=== PATIENT | male | born 1980 | race Caucasian/White ===

== ENCOUNTER 2019-12-15 13:01 | Emergency (ER) | payer OTHER, MEDICAID, SELFPAY ==
[2019-12-15] VITALS (9 sets, daily range): BP systolic 120–131; BP diastolic 69–82; PULSE 56–78; RESP 12–26; TEMP 36.4; O2SAT 100; BMI 25.3
--- NOTE | 2019-12-15 | DI.CT.S_ITS ---
PROCEDURE: CT HEAD/BRAIN WO CON INDICATIONS: TRAUMA TECHNIQUE: Noncontrast 4.5 mm thick angled axial sections acquired from the foramen magnum to the vertex, with coronal and sagittal reformats. For radiation dose reduction, the following was used: automated exposure control, adjustment of mA and/or kV according to patient size. COMPARISON: [facility], CT, CT CERVICAL SPINE WO CON, 12/15/2019, 12:52. FINDINGS: Image quality: Diagnostic, with note made of motion artifact. CSF spaces: Basal cisterns are patent. No extra-axial fluid collections. Ventricles are normal in size and shape. Brain: No midline shift. No intracranial masses or hemorrhage. Alvarado-white matter interface is normal. Skull and face: Soft tissue hematoma is seen involving the forehead, left worse than right. No underlying calvarial fracture is seen. Calvarium and visualized facial bones are intact, without suspicious lesions. Sinuses: There is a mucous retention cyst seen within the inferior anterior right maxillary sinus. Visualized sinuses and mastoids are otherwise clear. IMPRESSION: No acute intracranial hemorrhage is seen. No acute intracranial process is seen. Soft tissue hematoma is seen involving the forehead, left greater than right, yet without an associated regional bony fracture identified. Dictated by: Constantino Hernandez M.D. on 12/15/2019 at 12:21 Approved by: Constantino Hernandez M.D. on 12/15/2019 at 12:23
--- NOTE | 2019-12-15 | DI.CT.S_ITS ---
PROCEDURE: CT CHEST ABD PEL W CON INDICATIONS: Construction trauma. TECHNIQUE: After the administration of intravenous contrast, 5 mm thick sections acquired from the lung apices to the symphysis. 2.5 mm thick coronal and sagittal reformats were acquired. Additional 7 mm thick coronal maximum intensity projection (MIP) reformats acquired through the lungs. Optional 10-minute delayed imaging may be performed from the kidneys to the bladder. For radiation dose reduction, the following was used: automated exposure control, adjustment of mA and/or kV according to patient size. COMPARISON: None. FINDINGS: Image quality: Excellent. CHEST: Lungs: No pulmonary contusions or lacerations. No acute airspace opacities. Mild bilateral posterior dependent atelectasis is seen. No pneumothorax or hemothorax. Central and peripheral airways appear patent and normal in caliber. Mediastinum: No mediastinal hematomas. Heart size is normal. No pericardial effusion. Thoracic aorta and pulmonary arteries demonstrate normal size and enhancement. No mediastinal or hilar adenopathy. Esophagus is normal in caliber. No hiatal hernia. Chest wall: No rib fractures. No subcutaneous emphysema. No axillary or supraclavicular adenopathy. Thyroid gland is unremarkable. ABDOMEN: Solid organs: Liver is normal in size and enhancement, without lacerations. Gallbladder is within normal limits. Biliary system is non-dilated. Pancreas enhances normally, without transection. Spleen is normal in size and enhancement, without lacerations. No adrenal hematomas. Both kidneys enhance normally, without hydronephrosis or lacerations. Peritoneum and bowel: No free fluid or air. Unenhanced bowel loops demonstrate normal wall thickness and caliber. Nodes and vessels: No retroperitoneal or mesenteric adenopathy. Aorta and inferior vena cava are normal in size and enhancement. Miscellaneous: No ventral hernias. PELVIS: Genitourinary: Bladder wall thickness is normal. Miscellaneous: No inguinal hernias or adenopathy. Bones: Pelvic ring and hip joints appear intact. Acute appearing anterior wedge compression deformity involving T8, T10, T11 and T12 vertebral bodies are seen with up to 27 percent loss of T12 vertebral body height anteriorly. No significant retropulsion is seen at these levels. IMPRESSION: 1. Acute appearing compression fractures involving superior anterior aspect of T8, T10, T11 and T12 vertebral bodies with up to 27 percent loss of T12 vertebral body height anteriorly. No acute compression fracture is seen in lumbar spine. 2. No acute fracture is noted in bilateral ribs or bony pelvis. 3. No acute solid organ injury is seen in chest, abdomen or pelvis. Dictated by: Walter Ewing M.D. on 12/15/2019 at 12:34 Approved by: Walter Ewing M.D. on 12/15/2019 at 12:44
--- NOTE | 2019-12-15 | DI.CT.S_ITS ---
PROCEDURE: CT CERVICAL SPINE WO CON INDICATIONS: TRAUMA TECHNIQUE: Noncontrast 3 mm thick sections acquired from the skull base to the T4 level. Sagittal and coronal reformats were then constructed. For radiation dose reduction, the following was used: automated exposure control, adjustment of mA and/or kV according to patient size. COMPARISON: [facility], CT, CT HEAD/BRAIN WO CON, 12/15/2019, 12:52. FINDINGS: Image quality: There is motion artifact seen, particularly affecting the thoracic portion of this study. Bones: No fractures or dislocations. Visualized superior ribs are intact. Soft tissues: Prevertebral soft tissues are normal in thickness. No paravertebral hematomas. No apical pneumothoraces. IMPRESSION: No displaced cervical spine fracture is seen. Dictated by: Constantino Hrenandez M.D. on 12/15/2019 at 12:23 Approved by: Constantino Hernandez M.D. on 12/15/2019 at 12:24
--- NOTE | 2019-12-15 13:18 | ED_ITS ---
HPI - Trauma General Chief Complaint: Trauma Stated Complaint: Trauma Time Seen by Provider: 12/15/19 14:06 Source: patient and EMS Mode of arrival: EMS History of Present Illness HPI narrative: Patient brought in by EMS. Patient involved in construction site injury. 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 No no no loss of consciousness. Complains of lower back pain. No limb pain or injury. No numbness tingling or weakness. No incontinence. No saddle paresthesia. Patient is diabetic. Ate lunch, chicken strips, 1 hour prior to injury. Has abrasion to the bridge of the nose. Patie nt arrives boarded and collared. Patient immediately went to CT scan for trauma imaging. EMS gave 20 mg of morphine. Patient is awake alert oriented x4. Clear speech. No hypoxia. No hypotension. ATLS protocol followed. Please see nurse's notes for primary survey MD complaint: injury and pain Review of Systems Review of Systems Narrative: GENERAL: Denies chills, fatigue, malaise, fever, sweats. HEENT: Denies sinus pain, ear pain, sore throat, difficulty swallowing, dizziness. RESPIRATORY: Denies dyspnea, cough, wheezing, hemoptysis, sputum. CARDIOVASCULAR: Denies chest pain, palpitations, orthopnea, edema, GASTROINTESTINAL: Denies nausea, vomiting, abdominal pain, diarrhea, constipation, melena. : Denies dysuria, frequency, incontinence, hematuria, urinary retention. MUSCULOSKELETAL: Complains of low back pain. Otherwise no joint pain or limb pain. SKIN: Denies rash, skin lesions, and abrasion to bridge of nose NEUROLOGIC: Denies weakness, headache, numbness, change in speech, confusion, seizures, incoordination. PSYCHIATRIC: No concerning psychosocial issues. ROS Unobtainable: All systems reviewed & are unremarkable except as noted in HPI and below Patient History Social History Smoking Status: Former smoker Exam Narrative Exam Narrative: GENERAL: patient appears stated age. Well-nourished, well- developed patient, in no distress, not toxic, patient arrives boarded and collared. Remains boarded and collared until CT scan results of spine returns. Able to assess there is no midline tenderness of cervical spine. Shirt is off socks and boots off HEAD: Atraumatic. Normocephalic. EYES: Pupils equal round and reactive. Extraocular motions intact. No scleral icterus. No injection or drainage. ENT: Nose with abrasion at bridge of nose. No active bleeding. No septal hematoma no bleeding in the nostrils, purulent drainage. Throat without erythema, tonsillar hypertrophy or exudate. Airway patent. NECK: Trachea midline. Non tender CARDIOVASCULAR: Regular rate and rhythm without murmurs, gallops, or rubs. Strong bilateral carotid as well as radial and pedal pulses. RESPIRATORY: Clear to auscultation. Breath sounds equal bilaterally. No wheezes, rales, or rhonchi. GASTROINTESTINAL: Abdomen soft, non-tender, nondistended. EXTREMITIES: No edema or joint tenderness. No gross deformities, limbs are warm soft and pain BACK: On primary survey initial exam patient remains on board until CT scan results return. NEURO: AOx4 clear speech no facial droop light touch intact to bilateral face hands and feet. 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 Strong bilateral ankle flexion extension. SKIN: No rash or erythema of visible areas PSYCH: Not anxious, is cooperative Initial Vital Signs Initial Vital Signs: Vital Signs Pulse Rate 63 12/15/19 13:23 Respiratory Rate 26 H 12/15/19 13:23 Pulse Oximetry 100 12/15/19 13:23 Course Course Course Narrative: Spoke with patient and results. Understands needs transfer to [facility] for evaluation and spine specialists Orders Ordered: Discontinued Medications Diphtheria/Tetanus/Acell Pertussis (Adacel) 0.5 ml IM .ONCE ONE Stop: 12/15/19 13:55 Last Admin: 12/15/19 13:59 Dose: 0.5 ml Documented by: RMARTIN Fentanyl (Sublimaze) 50 mcg IV NOW ONE Stop: 12/15/19 13:17 Last Admin: 12/15/19 13:20 Dose: 50 mcg Documented by: RMARTIN Fentanyl (Sublimaze) 50 mcg IV NOW ONE Stop: 12/15/19 15:09 Last Admin: 12/15/19 15:11 Dose: 50 mcg Documented by: RMARTIN Ondansetron HCl (Zofran) 4 mg IV NOW ONE Stop: 12/15/19 13:17 Last Admin: 12/15/19 13:20 Dose: 4 mg Documented by: ROSEANN Ondansetron HCl (Zofran) 4 mg IV NOW ONE Stop: 12/15/19 15:09 Last Admin: 12/15/19 15:11 Dose: 4 mg Documented by: ROSEANN Reevaluation(s) Reevaluation #1: Patient hemodynamically stable at this time. No neuro complaints of weakness or numbness. Time: 14:36 Consultations Consultation #1: Spoke with trauma services [facility] Dr. Lima... Will accept patient, she recommends with spinal precautions patient to be removed off of the backboard Time: 14:36 Vital Signs Vital signs: Vital Signs - 8 hr 12/15/19 13:23 12/15/19 13:30 12/15/19 13:32 Temperature 97.5 F L Pulse Rate 63 56 L 68 Respiratory Rate 26 H 23 18 Blood Pressure 122/69 130/69 Pulse Oximetry 100 100 100 12/15/19 13:45 12/15/19 14:00 12/15/19 14:15 Temperature Pulse Rate 73 73 69 Respiratory Rate 12 14 20 Blood Pressure 131/75 130/75 128/78 Pulse Oximetry 100 100 100 12/15/19 14:30 12/15/19 14:45 12/15/19 15:00 Temperature Pulse Rate 66 76 78 Respiratory Rate 13 16 16 Blood Pressure 130/81 124/82 120/74 Pulse Oximetry 100 100 100 MDM - Trauma Lab Data Attestation: I reviewed the patient's lab results. Result diagrams: 12/15/19 13:17 12/15/19 13:00 Labs: Lab Results 12/15/19 12/15/19 12/15/19 Range/Units 13:00 13:17 13:51 WBC 9.1 (4.5-11.0) X10^3/uL RBC 4.48 L (4.5-5.9) X10^6/uL Hgb 13.8 (13.5-17.5) g/dL Hct 39.5 L (41-53) % MCV 88.0 (80-100) fL MCH 30.8 (26-34) PG MCHC 35.0 (30-36) % RDW 12.0 (11.6-14.8) % Plt Count 300 (150-400) X10^3/uL Neut % (Auto) 75.8 H (50-75) % Lymph % (Auto) 18.0 L (25-40) % [place] % (Auto) 5.4 (3-14) % Eos % (Auto) 0.3 L (2-4) % Baso % (Auto) 0.5 (0-2) % Neut # (Auto) 6900 (4045-4806) /uL Lymph # (Auto) 1600 (2098-3259) /uL [place] # (Auto) 500 (0-900) /uL Eos # (Auto) 0 (0-450) /uL Baso # (Auto) 0 (0-100) /uL Sodium 136 L (137-145) mmol/L Potassium 4.0 (3.4-5.1) mmol/L Chloride 102 (98-107) mmol/L Carbon Dioxide 28 (22-32) mmol/L BUN 21 H (9-20) mg/dL Creatinine 1.04 (0.66-1.25) mg/dL Estimated GFR > 60.0 (>60) mL/min BUN/Creatinine Ratio 20.2 (6-22) Glucose 165 H (70-100) mg/dL Calcium 9.0 (8.4-10.2) mg/dL Total Bilirubin 1.3 (0.2-1.3) mg/dL AST 56 (17-59) IU/L ALT 35 (<50) IU/L Alkaline Phosphatase 56 (38-126) U/L Total Creatine Kinase 308 H (55-170) U/L CK-MB (CK-2) 5.12 H (<2.37) ng/mL CK-MB (CK-2) Rel Index 1.7 (1.5-5.0) % Troponin I 0.013 (0.01-0.034) ng/mL Total Protein 6.7 (6.3-8.2) g/dL Albumin 4.4 (3.5-5.0) g/dL Globulin 2.3 (1.7-4.1) g/dL Albumin/Globulin Ratio 1.9 (1.0-2.8) Lipase 39 (23-300) U/L Ethyl Alcohol < 10 ( - 10) mg/dL COVID-19 PCR Negative (Negative) Point of Care Testing Glucose POC [address] scan - head: Radiologist's Impression: [address] [address] [address] Scan Report Signed Patient: Sung Gama#: [id number] : 1980Acct:[id number] Age/Sex: 39 / MDate of Service: 12/15/19 Loc: ED Accession Number: [id number] Procedure: CT head/brain wo con Ordering Provider: Greyson Soria MD PROCEDURE: CT HEAD/BRAIN WO CON INDICATIONS: TRAUMA TECHNIQUE: Noncontrast 4.5 mm thick angled axial sections acquired from the foramen magnum to the vertex, with coronal and sagittal reformats. For radiation dose reduction, the following was used: automated exposure control, adjustment of mA and/or kV according to patient size. COMPARISON: Located [facility], CT, CT CERVICAL SPINE WO CON, 12/15/2019, 12:52. FINDINGS: Image quality: Diagnostic, with note made of motion artifact. CSF spaces: Basal cisterns are patent. No extra-axial fluid collections. Ventricles are normal in size and shape. Brain: No midline shift. No intracranial masses or hemorrhage. Alvarado-white matter interface is normal. Skull and face: Soft tissue hematoma is seen involving the forehead, left worse than right. No underlying calvarial fracture is seen. Calvarium and visualized facial bones are intact, without suspicious lesions. Sinuses: There is a mucous retention cyst seen within the inferior anterior right maxillary sinus. Visualized sinuses and mastoids are otherwise clear. IMPRESSION: No acute intracranial hemorrhage is seen. No acute intracranial process is seen. Soft tissue hematoma is seen involving the forehead, left greater than right, yet without an associated regional bony fracture identified. Dictated by: Constantino Hernandez M.D. on 12/15/2019 at 12:21 Approved by: Constantino Hernandez M.D. on 12/15/2019 at 12:23 CT - cervical spine: Radiologist's Impression: [address] [address] [address] Scan Report Signed Patient: Sung Gama#: [id number] : 1980Acct:[id number] Age/Sex: 39 / MDate of Service: 12/15/19 Loc: ED Accession Number: [id number] Procedure: CT cervical spine wo con Ordering Provider: Greyson Soria MD PROCEDURE: CT CERVICAL SPINE WO CON INDICATIONS: TRAUMA TECHNIQUE: Noncontrast 3 mm thick sections acquired from the skull base to the T4 level. Sagittal and coronal reformats were then constructed. For radiation dose reduction, the following was used: automated exposure control, adjustment of mA and/or kV according to patient size. COMPARISON: Located [facility], CT, CT HEAD/BRAIN WO CON, 12/15/2019, 12:52. FINDINGS: Image quality: There is motion artifact seen, particularly affecting the thor acic portion of this study. Bones: No fractures or dislocations. Visualized superior ribs are intact. Soft tissues: Prevertebral soft tissues are normal in thickness. No paravertebral hematomas. No apical pneumothoraces. IMPRESSION: No displaced cervical spine fracture is seen. Dictated by: Constantino Hernandez M.D. on 12/15/2019 at 12:23 Approved by: Constantino Hernandez M.D. on 12/15/2019 at 12:24 CT scan chest abdomen pelvis: Radiologist's Impression: [place] [address] CT Scan Report Signed Patient: Sung Gama#: [id number] : 1980Acct:[id number] Age/Sex: 39 / MDate of Service: 12/15/19 Loc: ED Accession Number: [id number] Procedure: CT chest abd pel w con Ordering Provider: Greyson Soria MD PROCEDURE: CT CHEST ABD PEL W CON INDICATIONS: Construction trauma. TECHNIQUE: After the administration of intravenous contrast, 5 mm thick sections acquired from the lung apices to the symphysis. 2.5 mm thick coronal and sagittal reformats were acquired. Additional 7 mm thick coronal maximum intensity projection (MIP) reformats acquired through the lungs. Optional 10-minute delayed imaging may be performed from the kidneys to the bladder. For radiation dose reduction, the following was used: automated exposure control, adjustment of mA and/or kV according to patient size. COMPARISON: None. FINDINGS: Image quality: Excellent. CHEST: Lungs: No pulmonary contusions or lacerations. No acute airspace opacities. Mild bilateral posterior dependent atelectasis is seen. No pneumothorax or hemot horax. Central and peripheral airways appear patent and normal in caliber. Mediastinum: No mediastinal hematomas. Heart size is normal. No pericardial effusion. Thoracic aorta and pulmonary arteries demonstrate normal size and enhancement. No mediastinal or hilar adenopathy. Esophagus is normal in caliber. No hiatal hernia. Chest wall: No rib fractures. No subcutaneous emphysema. No axillary or supraclavicular adenopathy. Thyroid gland is unremarkable. ABDOMEN: Solid organs: Liver is normal in size and enhancement, without lacerations. Gallbladder is within normal limits. Biliary system is non-dilated. Pancreas enhances normally, without transection. Spleen is normal in size and enhancement, without lacerations. No adrenal hematomas. Both kidneys enhance normally, without hydronephrosis or lacerations. Peritoneum and bowel: No free fluid or air. Unenhanced bowel loops demonstrate normal wall thickness and caliber. Nodes and vessels: No retroperitoneal or mesenteric adenopathy. Aorta and inferior vena cava are normal in size and enhancement. Miscellaneous: No ventral hernias. PELVIS: Genitourinary: Bladder wall thickness is normal. Miscellaneous: No inguinal hernias or adenopathy. Bones: Pelvic ring and hip joints appear intact. Acute appearing anterior wedge compression deformity involving T8, T10, T11 and T12 vertebral bodies are seen with up to 27 percent loss of T12 vertebral body height anteriorly. No significant retropulsion is seen at these levels. IMPRESSION: 1. Acute appearing compression fractures involving superior anterior aspect of T8, T10, T11 and T12 vertebral bodies with up to 27 percent loss of T12 vertebral body height anteriorly. No acute compression fracture is seen in lumbar spine. 2. No acute fracture is noted in bilateral ribs or bony pelvis. 3. No acute solid organ injury is seen in chest, abdomen or pelvis. Dictated by: Walter Ewing M.D. on 12/15/2019 at 12:34 Approved by: Walter Ewing M.D. on 12/15/2019 at 12:44 ECG Data Attestation: I personally reviewed and interpreted this ECG as follows: Interpretation: Sinus rhythm, tall T-waves possible hyperkalemia. MDM Narrative Medical decision making narrative: Patient desires [facility] instead a ground transport. Patient states has a lot of pain in the back and not able to tolerate EMS ride Discharge Plan Departure Patient Disposition: Xfer Acute Care Hospital Clinical Impression: Fracture of vertebra at T1-T2 level of thoracic spine Discharge Date/Time: 12/15/19 15:36
[2019-12-15] MEDS: fentaNYL 100 MCG/2 ML INJ 50 MCG IV ×2 (13:20→15:11)
[2019-12-15] MEDS: ONDANSETRON 4 MG/2 ML INJ IV ×2 (13:20→15:11)
[2019-12-15 13:25] LABS: Add Manual Diff / Slide Review NO; Basophils Absolute Auto 0 /uL (0-100); Basophils Percent Auto 0.5 % (0-2); Eosinophils Absolute Auto 0 /uL (0-450); Eosinophils Percent Auto 0.3 % (2-4); Hematocrit 39.5 % (41-53); Hemoglobin 13.8 g/dL (13.5-17.5); Lymphocytes Absolute Auto 1600 /uL (1100-4500); Mean Corpuscular Hemoglobin 30.8 PG (26-34); Monocytes Absolute Auto 500 /uL (0-900); Monocytes Percent Auto 5.4 % (3-14); Neutrophils Absolute Auto 6900 /uL (1500-7000); Neutrophils Percent Auto 75.8 % (50-75); Platelet Count 300 X10^3/uL (150-400); Red Blood Cell Count 4.48 X10^6/uL (4.5-5.9); White Blood Cell Count 9.1 X10^3/uL (4.5-11.0)
[2019-12-15 13:37] LABS: Alanine Aminotransferase 35 IU/L (<50); Albumin 4.4 g/dL (3.5-5.0); Albumin Globulin Ratio 1.9 (1.0-2.8); Alkaline Phosphatase 56 U/L (38-126); Aspartate Aminotransferase 56 IU/L (17-59); BUN Creatinine Ratio 20.2 (6-22); Bilirubin Total 1.3 mg/dL (0.2-1.3); Blood Urea Nitrogen 21 mg/dL (9-20); Carbon Dioxide 28 mmol/L (22-32); Chloride 102 mmol/L (98-107); Creatine Kinase 308 U/L (55-170); Estimated Glomerular Filt Rate > 60.0 mL/min (>60); Ethanol (ETOH) < 10 mg/dL; Globulin 2.3 g/dL (1.7-4.1); Glucose 165 mg/dL (70-100); Lipase 39 U/L (23-300); Sodium 136 mmol/L (137-145); Total Protein 6.7 g/dL (6.3-8.2)
[2019-12-15 13:48] LABS: Troponin I 0.013 ng/mL (0.01-0.034)
[2019-12-15 13:52] LABS: CKMB % Relative Index 1.7 % (1.5-5.0); Creatine Kinase MB 5.12 ng/mL (<2.37); HEMOLYSIS 84 (0-50)
[2019-12-15] MEDS: TET,DIPH,PERTUSS(ACELL),VAC/PF 0.5 ML SYRINGE IM (13:59)
--- NOTE | 2019-12-15 14:09 | PC.NURSE ---
Patient completed NS from field- 1000ml.
--- NOTE | 2019-12-15 14:13 | PC.NURSE ---
C-collar removed by provider.
[2019-12-15 15:12] LABS: COVID19 -Nasal RAPID Negative (Negative)
== END 2019-12-15 15:36 | disposition short-term general hospital (02) ==
PROVIDERS: Emergency Provider Emergency Medicine
DX: S22.019A Unspecified fracture of first thoracic vertebra, initial encounter for closed fracture (principal); S22.029A Unspecified fracture of second thoracic vertebra, initial encounter for closed fracture; S00.31XA Abrasion of nose, initial encounter; Z23 Encounter for immunization; W19.XXXA Unspecified fall, initial encounter
CPT/HCPCS: 70450; 71260; 72125; 74177; 80053; 80320; 82550; 82553; 82962; 83690; 84484; 85025; 87635; 90471; 93005; 96374; 96375; 96376; 99284; 99285; 99291; 99292; 90715; J2405; J3010